=== PATIENT | female | born 1975 | race Caucasian/White ===

== ENCOUNTER 2020-07-25 16:20 | Inpatient (IN) ==
[2020-07-25] MEDS ORDERED: *HR* HYDROmorphone (PF) 1 MG/ML SYRINGE IVP ONE ×3 (16:33→19:40)
[2020-07-25] MEDS ORDERED: Ondansetron 4 MG/2 ML VIAL IVP ONE (16:33)
[2020-07-25 18:37] LABS: Basophils % 0.3 %; Eosinophils # 0.1 K/mcL (0.0-0.6); Eosinophils % 0.5 %; Hematocrit 43.9 % (35.3-44.9); Hemoglobin 13.5 g/dL (11.5-15.4); Immature Granulocytes % 0.7 % (0-4); Lymphocytes # 1.6 K/mcL (0.6-4.6); Lymphocytes % 16.3 %; Mean Corpuscular HGB Conc 30.8 g/dL (31.6-35.5); Mean Corpuscular Hemoglobin 29.5 pg (28.0-33.3); Mean Corpuscular Volume 96.1 fL (83.0-100.0); Mean Platelet Volume 11.7 fL (9.4-12.4); Monocytes # 0.6 K/mcL (0.0-1.3); Monocytes % 6.5 %; Neutrophils # 7.2 K/mcL (1.6-8.9); Platelet Count 130 K/mcL (140-400); Red Blood Count 4.57 M/mcL (3.82-4.97); Red Cell Distribution Width 14.4 % (11.5-14.5); Segmented Neutrophils % 75.7 %; White Blood Count 9.5 K/mcL (4.3-11.1)
[2020-07-25 18:40] LABS: INR 0.9; Prothrombin Time 10.9 Seconds (9.4-12.1)
[2020-07-25 18:57] LABS: BUN/Creatinine Ratio 20 (6-26); Blood Urea Nitrogen 18 mg/dL (6-20); Calcium 9.1 mg/dL (8.6-10.3); Carbon Dioxide 23 mEq/L (23-29); Chloride 105 mEq/L (98-107); Glucose 146 mg/dL (70-105); Osmolality,Calculated 291 (280-300); Potassium 3.5 mEq/L (3.5-5.1); Sodium 138 mEq/L (136-145); eGFR For African Americans > 60 (> 60); eGFR For Non-African Americans > 60 (> 60)
[2020-07-25] MEDS ORDERED: *HR* HYDROmorphone (PF) 1 MG/ML SYRINGE IVP PRN (19:41)
[2020-07-25] MEDS ORDERED: *HR* OxyCODONE Immed Rel 5 MG TABLET PO PRN ×2 (19:43→22:26)
[2020-07-25] MEDS ORDERED: tiZANidine 4 MG TABLET PO ONE (19:55)
[2020-07-25] MEDS ORDERED: Naloxone 0.4 MG/ML INJ IVP PRN (19:59)
[2020-07-25] MEDS ORDERED: Acetaminophen IV 1,000 MG/100 ML BAG IVPB ONE (20:03)
[2020-07-25] MEDS ORDERED: Dextrose Gel 15 GM/37.5 ML TUBE PO PRN ×2 (20:05)
[2020-07-25] MEDS ORDERED: *HR* Dextrose 50 % in Water (Vial) 50 ML VIAL IVP PRN (20:05)
[2020-07-25] MEDS ORDERED: D5% in Water 1,000 ML IVC PRN (20:05)
[2020-07-25 20:29] LABS: Adenovirus Not Detected (Not Detect); Bordetella Pertussis Not Detected (Not Detect); Chlamydophila pneumoniae Not Detected (Not Detect); Coronavirus 229E Not Detected (Not Detect); Coronavirus HKU1 Not Detected (Not Detect); Coronavirus NL63 Not Detected (Not Detect); Coronavirus OC43 Not Detected (Not Detect); Human Metapneumovirus Not Detected (Not Detect); Human Rhinovirus/Enterovirus Not Detected (Not Detect); Influenza A Subtype 2009 H1 Not Detected (Not Detect); Influenza B Not Detected (Not Detect); Mycoplasma pneumoniae Not Detected (Not Detect); Parainfluenza Virus 1 Not Detected (Not Detect); Parainfluenza Virus 2 Not Detected (Not Detect); Parainfluenza Virus 3 Not Detected (Not Detect); Parainfluenza Virus 4 Not Detected (Not Detect); Respiratory Syncytial Virus Not Detected (Not Detect); SARS-CoV-2 Not Detected (Not Detect)
[2020-07-25] MEDS: Pantoprazole 40 MG VIAL IVP SCH (23:30)
[2020-07-26] MEDS: *HR* HYDROmorphone (PF) 1 MG/ML SYRINGE IVP PRN ×5 (00:03→22:33)
[2020-07-26] MEDS ORDERED: tiZANidine 4 MG TABLET PO PRN (02:00)
[2020-07-26 05:43] LABS: Hematocrit 39.6 % (35.3-44.9); Hemoglobin 12.4 g/dL (11.5-15.4); Mean Corpuscular HGB Conc 31.3 g/dL (31.6-35.5); Mean Corpuscular Volume 95.9 fL (83.0-100.0); Mean Platelet Volume 11.4 fL (9.4-12.4); Platelet Count 140 K/mcL (140-400); Red Blood Count 4.13 M/mcL (3.82-4.97); Red Cell Distribution Width 14.6 % (11.5-14.5); White Blood Count 8.9 K/mcL (4.3-11.1)
[2020-07-26 05:47] LABS: INR 0.9; Prothrombin Time 10.8 Seconds (9.4-12.1)
[2020-07-26 05:50] LABS: Activated Partial Thrombo Time 24.7 Seconds (26.0-36.0)
[2020-07-26 06:04] LABS: BUN/Creatinine Ratio 17 (6-26); Blood Urea Nitrogen 18 mg/dL (6-20); Calcium 8.6 mg/dL (8.6-10.3); Carbon Dioxide 25 mEq/L (23-29); Chloride 105 mEq/L (98-107); Chol/HDL Ratio 4.3 (0-4.9); Cholesterol 298 mg/dL (< 200); Glucose 87 mg/dL (70-105); HDL Cholesterol 69 mg/dL (40-59); LDL Cholesterol,Calculated 193 mg/dL (< 100); Magnesium 1.7 mg/dL (1.6-2.6); Osmolality,Calculated 289 (280-300); Potassium 3.4 mEq/L (3.5-5.1); Sodium 139 mEq/L (136-145); Triglycerides 179 mg/dL (< 150); eGFR For African Americans > 60 (> 60); eGFR For Non-African Americans 58 (> 60)
[2020-07-26] MEDS: Pantoprazole 40 MG VIAL IVP SCH (08:35)
[2020-07-26] MEDS ORDERED: Aspirin Enteric Coated 81 MG Tablet PO SCH (09:00)
[2020-07-26 10:08] LABS: Estimated Average Glucose 146 mg/dl; Hemoglobin A1C 6.7 %
[2020-07-26] MEDS ORDERED: Lidocaine -MPF 2% 2 ML VIAL ONE (12:20)
[2020-07-26] MEDS ORDERED: *HR* Midazolam HCl 2 MG/2 ML VIAL ONE (12:20)
[2020-07-26] MEDS ORDERED: *HR* Propofol 200 MG/20 ML VIAL IVP ONE (12:20)
[2020-07-26] MEDS ORDERED: Dexamethasone 4 MG/ML VIAL ONE (12:20)
[2020-07-26] MEDS ORDERED: Ondansetron 4 MG/2 ML VIAL ONE (12:20)
[2020-07-26] MEDS ORDERED: *HR* FentaNYL (PF) 100 MCG/2 ML VIAL ONE (12:20)
[2020-07-26] MEDS ORDERED: *HR* Succinylcholine 200 MG/10 ML VIAL IVP ONE (12:20)
[2020-07-26] MEDS ORDERED: Lidocaine HCL 4 ML Topical Solution (Laryng-O-Jet Kit Sterile Pak) TP ONE (12:20)
[2020-07-26] MEDS ORDERED: Vancomycin 1,000 MG VIAL ONE (12:25)
[2020-07-26] MEDS ORDERED: Ethanol\\Acetic Acid\\Na Ace\\Ben 1,000 ML IRRIG.SOLN IR ONE (12:25)
[2020-07-26] MEDS ORDERED: ceFAZolin 3,000 MG in Water for inj. (sterile) 30 ML IVP ONE (13:13)
[2020-07-26] MEDS ORDERED: *HR* HYDROMORPHONE 2 MG/ML VIAL ONE (13:28)
[2020-07-26] MEDS: *HR* HYDROmorphone PF 0.5 MG/0.5 ML SYRINGE IVP PRN ×8 (14:43→15:59)
[2020-07-26] MEDS ORDERED: Pregabalin 75 MG CAPSULE PO SCH (15:00)
[2020-07-26] MEDS ORDERED: Ketorolac 15 MG/ML VIAL IVP ONE (15:02)
[2020-07-26] MEDS ORDERED: Acetaminophen IV 1,000 MG/100 ML BAG IVPB ONE (15:03)
[2020-07-26] MEDS ORDERED: Dexmedetomidine HCl 400 MCG/100 ML MLS IVC ONE (15:57)
[2020-07-26] MEDS ORDERED: *HR* Magnesium Sulfate 1 GM/2 ML VIAL ONE (15:58)
[2020-07-26] MEDS ORDERED: Sucralfate 1 GM TABLET PO SCH ×2 (16:30→22:00)
[2020-07-26] MEDS ORDERED: *HR* Dextrose 50 % in Water (Vial) 50 ML VIAL IVP PRN (17:36)
[2020-07-26] MEDS ORDERED: (Rizatriptan Benzoate [Maxalt] 10 MG) PO PRN (17:36)
[2020-07-26] MEDS ORDERED: *HR* OxyCODONE Immed Rel 5 MG TABLET PO PRN (17:36)
[2020-07-26] MEDS ORDERED: Naloxone 0.4 MG/ML INJ IVP PRN ×2 (17:36)
[2020-07-26] MEDS ORDERED: D5% in Water 1,000 ML IVC PRN (17:36)
[2020-07-26] MEDS ORDERED: NON-FORMULARY MEDICATION 1 EACH EACH (Pregabalin [Lyrica] 150 MG) PO SCH (17:36)
[2020-07-26] MEDS ORDERED: *HR* OxyCODONE/APAP 5/325 TABLET PO PRN (17:36)
[2020-07-26] MEDS ORDERED: Dextrose Gel 15 GM/37.5 ML TUBE PO PRN ×2 (17:36)
[2020-07-26] MEDS: Sucralfate 1 GM TABLET PO SCH ×2 (18:06→20:45)
[2020-07-26] MEDS: tiZANidine 4 MG TABLET PO PRN (18:06)
[2020-07-26] MEDS: Acyclovir 200 MG CAPSULE PO SCH ×2 (18:06→20:45)
[2020-07-26] MEDS: Pregabalin 75 MG CAPSULE PO SCH (20:42)
[2020-07-26] MEDS: *HR* OxyCODONE Immed Rel 5 MG TABLET PO PRN (20:43)
[2020-07-26] MEDS: sulfaSALAzine 500 MG TABLET PO SCH (20:43)
[2020-07-26] MEDS ORDERED: sulfaSALAzine 500 MG TABLET PO SCH ×2 (21:00)
[2020-07-26] MEDS ORDERED: ceFAZolin 3,000 MG in 0.9 % Sodium Chloride 100 ML IVPB SCH (21:00)
[2020-07-26] MEDS: ceFAZolin 3,000 MG in 0.9 % Sodium Chloride 100 ML IVPB SCH (21:02)
[2020-07-27] MEDS: tiZANidine 4 MG TABLET PO PRN ×3 (00:57→14:25)
[2020-07-27] MEDS: *HR* OxyCODONE Immed Rel 5 MG TABLET PO PRN ×3 (00:57→14:25)
[2020-07-27] MEDS: *HR* HYDROmorphone (PF) 1 MG/ML SYRINGE IVP PRN ×4 (03:22→16:01)
[2020-07-27] MEDS: ceFAZolin 3,000 MG in 0.9 % Sodium Chloride 100 ML IVPB SCH (05:00)
[2020-07-27 05:19] LABS: Hematocrit 36.4 % (35.3-44.9); Hemoglobin 11.4 g/dL (11.5-15.4); Mean Corpuscular HGB Conc 31.3 g/dL (31.6-35.5); Mean Corpuscular Hemoglobin 30.1 pg (28.0-33.3); Mean Platelet Volume 11.8 fL (9.4-12.4); Platelet Count 152 K/mcL (140-400); Red Blood Count 3.79 M/mcL (3.82-4.97); Red Cell Distribution Width 14.2 % (11.5-14.5); White Blood Count 11.7 K/mcL (4.3-11.1)
[2020-07-27 06:43] LABS: BUN/Creatinine Ratio 15 (6-26); Blood Urea Nitrogen 17 mg/dL (6-20); Calcium 8.2 mg/dL (8.6-10.3); Carbon Dioxide 26 mEq/L (23-29); Chloride 103 mEq/L (98-107); Glucose 137 mg/dL (70-105); Osmolality,Calculated 282 (280-300); Potassium 5.6 mEq/L (3.5-5.1); Sodium 134 mEq/L (136-145); eGFR For African Americans > 60 (> 60); eGFR For Non-African Americans 53 (> 60)
[2020-07-27] MEDS: Sucralfate 1 GM TABLET PO SCH ×2 (07:34→14:24)
[2020-07-27] MEDS ORDERED: NON-FORMULARY MEDICATION 1 EACH EACH (Cyanocobalamin (Vitamin B-12) [Vitamin B-12] 1,000 M PO SCH (09:00)
[2020-07-27] MEDS ORDERED: NON-FORMULARY MEDICATION 1 EACH EACH (Esomeprazole Magnesium [Nexium] 40 MG) PO SCH (09:00)
[2020-07-27] MEDS ORDERED: Pantoprazole 40 MG VIAL IVP SCH (09:00)
[2020-07-27] MEDS ORDERED: (Leflunomide 20 MG) PO SCH (09:00)
[2020-07-27] MEDS ORDERED: Cyanocobalamin (B-12) 1,000 MCG TABLET PO SCH ×2 (09:00)
[2020-07-27] MEDS ORDERED: Cholecalciferol (D-3) 1,000 UNIT (25MCG) TABLET PO SCH (09:00)
[2020-07-27] MEDS ORDERED: NON-FORMULARY MEDICATION 1 EACH EACH (Citalopram Hydrobromide [Citalopram Hbr] 40 MG) PO SCH (09:00)
[2020-07-27] MEDS ORDERED: Aspirin Enteric Coated 81 MG Tablet PO SCH ×2 (09:00→12:17)
[2020-07-27] MEDS ORDERED: predniSONE 1 MG TABLET PO SCH (09:00)
[2020-07-27] MEDS ORDERED: hydroCHLOROthiazide 25 MG TABLET PO SCH ×3 (09:00)
[2020-07-27] MEDS ORDERED: PREDNISONE PO SCH ×2 (09:00)
[2020-07-27] MEDS ORDERED: predniSONE 10 MG TABLET PO SCH (09:00)
[2020-07-27] MEDS: Acyclovir 200 MG CAPSULE PO SCH ×2 (09:57→14:26)
[2020-07-27] MEDS: sulfaSALAzine 500 MG TABLET PO SCH (09:58)
[2020-07-27] MEDS: Pregabalin 75 MG CAPSULE PO SCH ×2 (09:59→14:26)
[2020-07-27 10:26] VITALS: BP 150/98
[2020-07-29] MEDS ORDERED: TOCILIZUMAB 162 MG SQ SCH (12:19)
[2020-07-30] MEDS ORDERED: NON-FORMULARY MEDICATION 1 EACH EACH (Alendronate Sodium [Fosamax] 70 MG) PO SCH (12:19)
== END 2020-07-27 17:32 | disposition home health service (06) | DRG 481 ==
LOC: EMEROOARM 16:20 → 3NENU 16:20 → SUATTDRO 21:19 → 3NENU 22:05
PROVIDERS: ADMIT Internal Medicine; ATTEND Internal Medicine

== ENCOUNTER 2020-11-06 00:08 | Inpatient (IN) ==
[2020-11-06] MEDS ORDERED: Isovue-370 500 ML BOTTLE IVP ONE (02:09)
[2020-11-06] MEDS ORDERED: 0.9 % Sodium Chloride 1,000 ML IVC ONE (02:10)
[2020-11-06] MEDS ORDERED: *HR* HYDROmorphone (PF) 1 MG/ML SYRINGE IVP ONE ×2 (02:10→04:29)
[2020-11-06 02:52] LABS: Basophils # 0.1 K/mcL (0.0-0.2); Basophils % 0.4 %; Eosinophils # 0.2 K/mcL (0.0-0.6); Hematocrit 38.7 % (35.3-44.9); Hemoglobin 12.3 g/dL (11.5-15.4); Immature Granulocytes % 0.4 % (0-4); Lymphocytes # 2.8 K/mcL (0.6-4.6); Lymphocytes % 23.4 %; Mean Corpuscular HGB Conc 31.8 g/dL (31.6-35.5); Mean Corpuscular Hemoglobin 29.1 pg (28.0-33.3); Mean Corpuscular Volume 91.7 fL (83.0-100.0); Mean Platelet Volume 10.7 fL (9.4-12.4); Monocytes % 8.3 %; Neutrophils # 7.7 K/mcL (1.6-8.9); Platelet Count 218 K/mcL (140-400); Red Blood Count 4.22 M/mcL (3.82-4.97); Red Cell Distribution Width 14.7 % (11.5-14.5); Segmented Neutrophils % 65.5 %; White Blood Count 11.8 K/mcL (4.3-11.1)
[2020-11-06 03:10] LABS: BUN/Creatinine Ratio 24 (6-26); Blood Urea Nitrogen 21 mg/dL (6-20); Calcium 9.1 mg/dL (8.6-10.3); Carbon Dioxide 22 mEq/L (23-29); Chloride 106 mEq/L (98-107); Glucose 105 mg/dL (70-105); Osmolality,Calculated 289 (280-300); Potassium 3.6 mEq/L (3.5-5.1); Sodium 138 mEq/L (136-145); eGFR For African Americans > 60 (> 60); eGFR For Non-African Americans > 60 (> 60)
[2020-11-06] MEDS ORDERED: Fluconazole 150 MG TABLET PO ONE (05:18)
[2020-11-06] MEDS ORDERED: tiZANidine 4 MG TABLET PO PRN (05:20)
[2020-11-06] MEDS ORDERED: Ondansetron 4 MG/2 ML VIAL IVP PRN ×2 (05:26→16:43)
[2020-11-06] MEDS ORDERED: Naloxone 0.4 MG/ML INJ IVP PRN ×2 (05:26→16:43)
[2020-11-06] MEDS ORDERED: Melatonin 3 MG TABLET PO PRN (05:26)
[2020-11-06] MEDS: *HR* HYDROmorphone (PF) 1 MG/ML SYRINGE IVP PRN ×8 (06:43→15:20)
[2020-11-06] MEDS: Pregabalin 75 MG CAPSULE PO SCH ×3 (08:17→19:27)
[2020-11-06] MEDS ORDERED: Ethanol\\Acetic Acid\\Na Ace\\Ben 1,000 ML IRRIG.SOLN IR ONE ×2 (08:31→12:56)
[2020-11-06] MEDS ORDERED: Vancomycin 1,000 MG VIAL ONE (08:31)
[2020-11-06] MEDS ORDERED: hydroCHLOROthiazide 25 MG TABLET PO SCH (09:00)
[2020-11-06 09:30] LABS: Adenovirus Not Detected (Not Detect); Bordetella Pertussis Not Detected (Not Detect); Chlamydophila pneumoniae Not Detected (Not Detect); Coronavirus 229E Not Detected (Not Detect); Coronavirus HKU1 Not Detected (Not Detect); Coronavirus NL63 Not Detected (Not Detect); Coronavirus OC43 Not Detected (Not Detect); Human Metapneumovirus Not Detected (Not Detect); Human Rhinovirus/Enterovirus Not Detected (Not Detect); Influenza A Subtype 2009 H1 Not Detected (Not Detect); Influenza B Not Detected (Not Detect); Mycoplasma pneumoniae Not Detected (Not Detect); Parainfluenza Virus 1 Not Detected (Not Detect); Parainfluenza Virus 2 Not Detected (Not Detect); Parainfluenza Virus 3 Not Detected (Not Detect); Parainfluenza Virus 4 Not Detected (Not Detect); Respiratory Syncytial Virus Not Detected (Not Detect); SARS-CoV-2 Not Detected (Not Detect)
[2020-11-06] MEDS ORDERED: *HR* Propofol 200 MG/20 ML VIAL IVP ONE ×2 (09:50→14:19)
[2020-11-06] MEDS ORDERED: *HR* FentaNYL (PF) 100 MCG/2 ML VIAL ONE (09:50)
[2020-11-06] MEDS ORDERED: Dexamethasone 4 MG/ML VIAL ONE (09:52)
[2020-11-06] MEDS ORDERED: Lidocaine -MPF 4% 5 ML AMPUL ONE (09:52)
[2020-11-06] MEDS ORDERED: *HR* Succinylcholine 200 MG/10 ML VIAL IVP ONE (09:52)
[2020-11-06] MEDS ORDERED: Ondansetron 4 MG/2 ML VIAL ONE (09:52)
[2020-11-06] MEDS ORDERED: Lidocaine -MPF 2% 2 ML VIAL ONE (09:52)
[2020-11-06] MEDS ORDERED: *HR* Rocuronium Bromide 50 MG/5 ML VIAL ONE (09:52)
[2020-11-06] MEDS ORDERED: *HR* OxyCODONE Immed Rel 5 MG TABLET PO PRN ×2 (12:54→16:29)
[2020-11-06] MEDS ORDERED: CeFAZolin Syr 2,000MG/20 ML 2,000 MG/20 ML SYRINGE IVPB ONE (13:52)
[2020-11-06] MEDS ORDERED: *HR* HYDROMORPHONE 2 MG/ML VIAL ONE (13:53)
[2020-11-06] MEDS ORDERED: Ketorolac 30 MG/ML VIAL IVP ONE (15:59)
[2020-11-06] MEDS ORDERED: Ketorolac 30 MG/ML VIAL IVP PRN (16:28)
[2020-11-06] MEDS ORDERED: Dextrose Gel 15 GM/37.5 ML TUBE PO PRN ×2 (16:43)
[2020-11-06] MEDS ORDERED: MOM Conc 10 ML UD.LIQ PO PRN (16:43)
[2020-11-06] MEDS ORDERED: D5% in Water 1,000 ML IVC PRN (16:43)
[2020-11-06] MEDS ORDERED: *HR* Dextrose 50 % in Water (Vial) 50 ML VIAL IVP PRN (16:43)
[2020-11-06] MEDS ORDERED: Sennosides 8.6 MG TABLET PO PRN (16:43)
[2020-11-06] MEDS: Ascorbic Acid 500 MG TABLET PO SCH (16:59)
[2020-11-06] MEDS: Ringers Solution, Lactated 1,000 ML IVC SCH (17:29)
[2020-11-06] MEDS: Vancomycin 1,250 MG/262.5 ML IV.SOLN IVPB SCH (17:30)
[2020-11-06] MEDS: *HR* OxyCODONE Immed Rel 5 MG TABLET PO PRN ×2 (17:42→21:46)
[2020-11-06] MEDS ORDERED: Vancomycin 1,250 MG/262.5 ML IV.SOLN IVPB SCH (18:00)
[2020-11-06] MEDS: Ketorolac 30 MG/ML VIAL IVP PRN (19:27)
[2020-11-06] MEDS: Melatonin 3 MG TABLET PO PRN (21:47)
[2020-11-07] MEDS: tiZANidine 4 MG TABLET PO PRN ×3 (00:05→18:48)
[2020-11-07 01:32] LABS: Basophils % 0.1 %; Hematocrit 32.5 % (35.3-44.9); Hemoglobin 10.2 g/dL (11.5-15.4); Immature Granulocytes % 0.5 % (0-4); Mean Corpuscular HGB Conc 31.4 g/dL (31.6-35.5); Mean Corpuscular Hemoglobin 29.1 pg (28.0-33.3); Mean Corpuscular Volume 92.6 fL (83.0-100.0); Monocytes # 0.3 K/mcL (0.0-1.3); Neutrophils # 6.3 K/mcL (1.6-8.9); Platelet Count 209 K/mcL (140-400); Red Blood Count 3.51 M/mcL (3.82-4.97); Red Cell Distribution Width 14.6 % (11.5-14.5); Segmented Neutrophils % 82.4 %; White Blood Count 7.7 K/mcL (4.3-11.1)
[2020-11-07 01:49] LABS: BUN/Creatinine Ratio 20 (6-26); Blood Urea Nitrogen 21 mg/dL (6-20); Calcium 8.5 mg/dL (8.6-10.3); Carbon Dioxide 21 mEq/L (23-29); Chloride 107 mEq/L (98-107); Glucose 147 mg/dL (70-105); Osmolality,Calculated 290 (280-300); Potassium 3.9 mEq/L (3.5-5.1); Sodium 137 mEq/L (136-145); eGFR For African Americans > 60 (> 60); eGFR For Non-African Americans 56 (> 60)
[2020-11-07] MEDS: *HR* OxyCODONE Immed Rel 5 MG TABLET PO PRN ×6 (02:11→23:52)
[2020-11-07] MEDS: Ketorolac 30 MG/ML VIAL IVP PRN (04:15)
[2020-11-07] MEDS: Vancomycin 1,250 MG/262.5 ML IV.SOLN IVPB SCH (06:12)
[2020-11-07] MEDS: hydroCHLOROthiazide 25 MG TABLET PO SCH (08:01)
[2020-11-07] MEDS: Multivit/Ca/Min/Fe/FA 1 TAB TABLET PO SCH (08:01)
[2020-11-07] MEDS: Fluconazole 100 MG TABLET PO SCH (08:02)
[2020-11-07] MEDS: Pregabalin 75 MG CAPSULE PO SCH ×3 (08:03→23:52)
[2020-11-07] MEDS: Ascorbic Acid 500 MG TABLET PO SCH ×2 (08:03→17:09)
[2020-11-07] MEDS ORDERED: Fluconazole 100 MG TABLET PO SCH (09:00)
[2020-11-07] MEDS: Ringers Solution, Lactated 1,000 ML IVC SCH (11:17)
[2020-11-07] MEDS: Sucralfate 1 GM TABLET PO SCH ×3 (12:34→21:03)
[2020-11-07] MEDS: Lactobacillus 1 EACH CAP.SPRINK PO SCH ×2 (14:54→21:03)
[2020-11-07] MEDS: Doxycycline 100 MG CAPSULE PO SCH ×2 (14:54→21:03)
[2020-11-07] MEDS: *HR* Promethazine 25 MG/ML VIAL IM PRN (14:58)
[2020-11-07] MEDS: *HR* Heparin 5,000 UNIT/ML VIAL SQ SCH (17:08)
[2020-11-07] MEDS: *HR* HYDROmorphone (PF) 1 MG/ML SYRINGE IVP PRN (21:04)
[2020-11-07] MEDS: Terconazole Vag CRM 20 GM TUBE VG SCH (23:51)
[2020-11-07] MEDS: Melatonin 3 MG TABLET PO PRN (23:51)
[2020-11-08] MEDS: *HR* HYDROmorphone (PF) 1 MG/ML SYRINGE IVP PRN ×4 (02:57→21:46)
[2020-11-08] MEDS: *HR* OxyCODONE Immed Rel 5 MG TABLET PO PRN ×4 (04:09→21:06)
[2020-11-08] MEDS: tiZANidine 4 MG TABLET PO PRN (06:09)
[2020-11-08] MEDS: Levothyroxine 25 MCG TABLET PO SCH (06:09)
[2020-11-08] MEDS: *HR* Heparin 5,000 UNIT/ML VIAL SQ SCH ×2 (06:09→17:07)
[2020-11-08 06:42] LABS: Basophils % 0.4 %; Immature Granulocytes % 0.5 % (0-4); Monocytes % 8.5 %
[2020-11-08 06:44] LABS: Eosinophils # 0.4 K/mcL (0.0-0.6); Hemoglobin 10.4 g/dL (11.5-15.4); Immature Platelets 13.1 % (1.1-6.1); Lymphocytes # 3.4 K/mcL (0.6-4.6); Mean Corpuscular HGB Conc 30.6 g/dL (31.6-35.5); Mean Corpuscular Hemoglobin 28.7 pg (28.0-33.3); Mean Corpuscular Volume 93.9 fL (83.0-100.0); Mean Platelet Volume 12.8 fL (9.4-12.4); Monocytes # 0.9 K/mcL (0.0-1.3); Neutrophils # 6.1 K/mcL (1.6-8.9); Platelet Count 172 K/mcL (140-400); Red Blood Count 3.62 M/mcL (3.82-4.97); Red Cell Distribution Width 14.9 % (11.5-14.5); Segmented Neutrophils % 55.6 %
[2020-11-08 07:01] LABS: Calcium 9.2 mg/dL (8.6-10.3); Potassium 3.4 mEq/L (3.5-5.1)
[2020-11-08] MEDS: Multivit/Ca/Min/Fe/FA 1 TAB TABLET PO SCH (09:00)
[2020-11-08] MEDS: Lactobacillus 1 EACH CAP.SPRINK PO SCH ×2 (09:12→21:07)
[2020-11-08] MEDS: Aspirin Enteric Coated 81 MG Tablet PO SCH (09:14)
[2020-11-08] MEDS: hydroCHLOROthiazide 25 MG TABLET PO SCH (09:14)
[2020-11-08] MEDS: Doxycycline 100 MG CAPSULE PO SCH ×2 (09:14→21:06)
[2020-11-08] MEDS: Fluconazole 100 MG TABLET PO SCH (09:15)
[2020-11-08] MEDS: Ascorbic Acid 500 MG TABLET PO SCH ×2 (09:15→17:08)
[2020-11-08] MEDS: Cyanocobalamin (B-12) 1,000 MCG TABLET PO SCH (09:16)
[2020-11-08] MEDS: Pregabalin 75 MG CAPSULE PO SCH ×3 (09:17→21:07)
[2020-11-08] MEDS: Sucralfate 1 GM TABLET PO SCH ×4 (09:17→21:07)
[2020-11-08] MEDS: (Leflunomide [Arava] 20 MG Tablet) PO SCH (11:34)
[2020-11-08] MEDS: Terconazole Vag CRM 20 GM TUBE VG SCH (21:53)
[2020-11-09] MEDS: *HR* OxyCODONE Immed Rel 5 MG TABLET PO PRN ×4 (01:25→18:45)
[2020-11-09] MEDS: *HR* HYDROmorphone (PF) 1 MG/ML SYRINGE IVP PRN ×4 (03:35→22:00)
[2020-11-09] MEDS: Levothyroxine 25 MCG TABLET PO SCH (06:13)
[2020-11-09] MEDS: *HR* Heparin 5,000 UNIT/ML VIAL SQ SCH ×2 (06:13→18:14)
[2020-11-09 08:12] LABS: Basophils % 0.5 %; Eosinophils # 0.7 K/mcL (0.0-0.6); Eosinophils % 8.6 %; Hematocrit 30.7 % (35.3-44.9); Hemoglobin 9.6 g/dL (11.5-15.4); Immature Granulocytes % 0.8 % (0-4); Lymphocytes # 3.1 K/mcL (0.6-4.6); Lymphocytes % 39.1 %; Mean Corpuscular HGB Conc 31.3 g/dL (31.6-35.5); Mean Corpuscular Volume 92.7 fL (83.0-100.0); Mean Platelet Volume 11.3 fL (9.4-12.4); Monocytes # 0.8 K/mcL (0.0-1.3); Monocytes % 9.5 %; Neutrophils # 3.3 K/mcL (1.6-8.9); Nucleated Red Blood Cells 0.6 /100 WBC (0); Platelet Count 204 K/mcL (140-400); Red Blood Count 3.31 M/mcL (3.82-4.97); Red Cell Distribution Width 15.3 % (11.5-14.5); Segmented Neutrophils % 41.5 %; White Blood Count 7.9 K/mcL (4.3-11.1)
[2020-11-09 08:28] LABS: BUN/Creatinine Ratio 29 (6-26); Blood Urea Nitrogen 26 mg/dL (6-20); Calcium 9.2 mg/dL (8.6-10.3); Carbon Dioxide 26 mEq/L (23-29); Chloride 106 mEq/L (98-107); Glucose 111 mg/dL (70-105); Osmolality,Calculated 293 (280-300); Potassium 3.3 mEq/L (3.5-5.1); Sodium 139 mEq/L (136-145); eGFR For African Americans > 60 (> 60); eGFR For Non-African Americans > 60 (> 60)
[2020-11-09] MEDS: Lactobacillus 1 EACH CAP.SPRINK PO SCH ×2 (09:11→20:55)
[2020-11-09] MEDS: Multivit/Ca/Min/Fe/FA 1 TAB TABLET PO SCH (09:11)
[2020-11-09] MEDS: Aspirin Enteric Coated 81 MG Tablet PO SCH (09:11)
[2020-11-09] MEDS: Sucralfate 1 GM TABLET PO SCH ×4 (09:11→20:55)
[2020-11-09] MEDS: Cyanocobalamin (B-12) 1,000 MCG TABLET PO SCH (09:11)
[2020-11-09] MEDS: hydroCHLOROthiazide 25 MG TABLET PO SCH (09:12)
[2020-11-09] MEDS: Ascorbic Acid 500 MG TABLET PO SCH ×2 (09:12→18:15)
[2020-11-09] MEDS: Doxycycline 100 MG CAPSULE PO SCH ×2 (09:12→20:55)
[2020-11-09] MEDS: Pregabalin 75 MG CAPSULE PO SCH ×3 (09:12→20:55)
[2020-11-09] MEDS: (Leflunomide [Arava] 20 MG Tablet) PO SCH (09:38)
[2020-11-09] MEDS: *HR* Promethazine 25 MG/ML VIAL IM PRN ×2 (09:41→18:45)
[2020-11-09] MEDS ORDERED: Ketorolac 15 MG/ML VIAL IVP PRN (17:44)
[2020-11-09] MEDS: Terconazole Vag CRM 20 GM TUBE VG SCH (20:58)
[2020-11-10 02:43] LABS: Basophils % 0.5 %; Eosinophils # 0.7 K/mcL (0.0-0.6); Eosinophils % 8.7 %; Hematocrit 31.2 % (35.3-44.9); Hemoglobin 9.8 g/dL (11.5-15.4); Immature Granulocytes % 1.2 % (0-4); Lymphocytes % 37.1 %; Mean Corpuscular HGB Conc 31.4 g/dL (31.6-35.5); Mean Corpuscular Hemoglobin 29.1 pg (28.0-33.3); Mean Corpuscular Volume 92.6 fL (83.0-100.0); Mean Platelet Volume 11.5 fL (9.4-12.4); Monocytes # 0.8 K/mcL (0.0-1.3); Monocytes % 10.1 %; Neutrophils # 3.5 K/mcL (1.6-8.9); Nucleated Red Blood Cells 1.6 /100 WBC (0); Platelet Count 219 K/mcL (140-400); Red Blood Count 3.37 M/mcL (3.82-4.97); Red Cell Distribution Width 15.4 % (11.5-14.5); Segmented Neutrophils % 42.4 %; White Blood Count 8.2 K/mcL (4.3-11.1)
[2020-11-10 03:01] LABS: BUN/Creatinine Ratio 32 (6-26); Blood Urea Nitrogen 30 mg/dL (6-20); Calcium 9.3 mg/dL (8.6-10.3); Carbon Dioxide 24 mEq/L (23-29); Chloride 104 mEq/L (98-107); Glucose 112 mg/dL (70-105); Osmolality,Calculated 293 (280-300); Potassium 3.4 mEq/L (3.5-5.1); Sodium 138 mEq/L (136-145); eGFR For African Americans > 60 (> 60); eGFR For Non-African Americans > 60 (> 60)
[2020-11-10] MEDS: *HR* HYDROmorphone (PF) 1 MG/ML SYRINGE IVP PRN ×2 (03:58→10:46)
[2020-11-10] MEDS: Sucralfate 1 GM TABLET PO SCH ×2 (07:26→10:43)
[2020-11-10] MEDS: *HR* OxyCODONE Immed Rel 5 MG TABLET PO PRN (07:26)
[2020-11-10] MEDS: *HR* Heparin 5,000 UNIT/ML VIAL SQ SCH (07:26)
[2020-11-10] MEDS: Levothyroxine 25 MCG TABLET PO SCH (07:26)
[2020-11-10] MEDS: Aspirin Enteric Coated 81 MG Tablet PO SCH (08:05)
[2020-11-10] MEDS: hydroCHLOROthiazide 25 MG TABLET PO SCH (08:05)
[2020-11-10] MEDS: Cyanocobalamin (B-12) 1,000 MCG TABLET PO SCH (08:06)
[2020-11-10] MEDS: Pregabalin 75 MG CAPSULE PO SCH (08:06)
[2020-11-10] MEDS: Ascorbic Acid 500 MG TABLET PO SCH (08:06)
[2020-11-10] MEDS: Doxycycline 100 MG CAPSULE PO SCH (08:06)
[2020-11-10] MEDS: Multivit/Ca/Min/Fe/FA 1 TAB TABLET PO SCH (08:07)
[2020-11-10] MEDS: (Leflunomide [Arava] 20 MG Tablet) PO SCH (08:07)
[2020-11-10] MEDS: Lactobacillus 1 EACH CAP.SPRINK PO SCH (08:07)
[2020-11-10 10:34] VITALS: BP 128/73
== END 2020-11-10 13:00 | disposition home or self-care (01) | DRG 908 ==
LOC: 3NENU 00:08 → EMEROOARM 00:08 → SUATTDRO 04:56 → 3NENU 05:40 → SUATTDRO 15:01
PROVIDERS: ADMIT Family Medicine; ATTEND Student in an Organized Health Care Education/Training Program